=== PATIENT | female | born 1990 | race Hispanic/Latino ===

== ENCOUNTER 2020-10-27 14:28 | Outpatient (CLI) | payer OTHER ==
[2020-10-27 15:13] VITALS: BP 138/79
== END 2020-10-27 17:18 | disposition home or self-care (01) ==
LOC: TRG 14:28 → APU 14:29 → TRG 17:18
PROVIDERS: ATTEND Obstetrics & Gynecology
DX: Z34.93 Encounter for supervision of normal pregnancy, unspecified, third trimester (principal); Z3A.39 39 weeks gestation of pregnancy
CPT/HCPCS: 59025

== ENCOUNTER 2020-10-31 17:07 | Outpatient (CLI) | payer OTHER ==
[2020-10-31 19:04] LABS: Hematocrit 26.1 % (30.3-42.9); Hemoglobin 7.9 gm/dl (10.1-14.3); Mean Corpuscular HGB Conc 30 % (30-34); Mean Corpuscular Volume 76 fl (79-97); Platelet Count 226 K/mm3 (140-440); Red Blood Count 3.46 M/mm3 (3.65-5.03)
[2020-10-31 19:13] LABS: Red Cell Distribution Width 20.1 % (13.2-15.2)
[2020-10-31 19:28] LABS: Alanine Aminotransferase 9 units/L (7-56); Uric Acid 3.1 mg/dL (3.5-7.6)
[2020-10-31 19:33] LABS: Bilirubin,Urine NEG (Negative); Blood,Urine SM (Negative); Color,Urine Amber (Yellow); Mucus,Urine 1+ /HPF
[2020-10-31 19:34] LABS: Protein,Urine >500 mg/dL (Negative)
[2020-10-31 20:08] VITALS: BP 129/83
== END 2020-10-31 20:24 | disposition home or self-care (01) ==
LOC: TRG 17:07 → APU 17:13 → TRG 20:24
PROVIDERS: ATTEND Obstetrics & Gynecology
DX: Z34.93 Encounter for supervision of normal pregnancy, unspecified, third trimester (principal); Z3A.39 39 weeks gestation of pregnancy
CPT/HCPCS: 36415; 59025; 81001; 82565; 83615; 84450; 84460; 84550; 85027; 87086